=== PATIENT | male | born 1970 | race Caucasian/White ===

== ENCOUNTER 2021-04-24 05:32 | Day surgery (SDC) | payer OTHER, SELFPAY ==
[2021-04-24 06:00] VITALS: BP 156/85; PULSE 74; RESP 18; TEMP 36.3; O2SAT 100; BMI 31.9
[2021-04-24] MEDS: Lactated Ringers 1,000 ML 100 ML IV (06:00)
[2021-04-24 06:21] LABS: Bedside Glucose 175 mg/dL (70-110)
--- NOTE | 2021-04-24 06:30 | PCM.HP.BLA ---
History and Physical Date of Admission: 04/24/21 Denys is a 50-year-old gentleman with past closed 3 of hypertension, diabetes, and hypercholesterolemia. He presents today for screening colonoscopy. He is not having any problems with his bowels. He has no family history of colon cancer. He has never had a colonoscopy. He has no abdominal pain, nausea or change in bowel habits. Past medical history is positive for hypertension, hypercholesterolemia, type 2 diabetes Past surgical history-none Family history-negative for GI disease Allergies-no known drug allergies Medications-Metformin 500 mg p.o. twice daily, rosuvastatin 20 mg daily, valsartan 320 mg daily Physical examination-blood pressure is 156/85, pulse 74, respiratory is 18, temperature is 97.4, satting 100% on room air HEENT-normocephalic atraumatic Respiratory-clear to all station bilaterally Cardiovascular-no murmurs rubs or gallops Abdomen-soft nontender nondistended Extremities-no rash ulcers or lesions Assessment and plan: 51 gentleman comes in for screening colonoscopy. He was explained alternatives, risk, benefits including not withstanding bleeding, infection, sepsis, perforation, need for emergent surgery . He would have an ASA 1.
[2021-04-24 07:06] VITALS: BP 124/87; BP 156/85; PULSE 64; RESP 14; TEMP 36.2; O2SAT 97
--- NOTE | 2021-04-24 07:08 | OP.COLON_ITS ---
Patient Name: Denys Wade Procedure Date: 04/24/2021 6:10 AM Date of : 1970 Age: 51 Procedure: Colonoscopy Indications: Screening for colorectal malignant neoplasm Providers: Javier Yates DO Medicines: See the Anesthesia note for documentation of the administered medications Patient Profile: This is a 51 year old male. Refer to note in patient chart for documentation of history and physical. Last Colonoscopy: date unknown. Complications: No immediate complications. Procedure: Pre-Anesthesia Assessment: - Prior to the procedure, a History and Physical was performed, and patient medications and allergies were reviewed. The patient is competent. The risks and benefits of the procedure and the sedation options and risks were discussed with the patient. All questions were answered and informed consent was obtained. Patient identification and proposed procedure were verified by the physician in the pre-procedure area. Mental Status Examination: alert and oriented. Airway Examination: normal oropharyngeal airway and neck mobility. Respiratory Examination: clear to auscultation. CV Examination: normal. Prophylactic Antibiotics: The patient does not require prophylactic antibiotics. Prior Anticoagulants: The patient has taken no previous anticoagulant or antiplatelet agents. After reviewing the risks and benefits, the patient was deemed in satisfactory condition to undergo the procedure. The anesthesia plan was to use moderate sedation / analgesia (conscious sedation). Immediately prior to administration of medications, the patient was re-assessed for adequacy to receive sedatives. The heart rate, respiratory rate, oxygen saturations, blood pressure, adequacy of pulmonary ventilation, and response to care were monitored throughout the procedure. The physical status of the patient was re-assessed after the procedure. After I obtained informed consent, the scope was passed under direct vision. Throughout the procedure, the patient's blood pressure, pulse, and oxygen saturations were monitored continuously. The pediatric colonoscope was introduced through the anus and advanced to the cecum, identified by appendiceal orifice and ileocecal valve. The ileocecal valve, appendiceal orifice, and rectum were photographed. The entire colon was well visualized. Moderate Sedation: Moderate (conscious) sedation was administered by the endoscopy nurse and supervised by the endoscopist. The patient's oxygen saturation, heart rate, blood pressure and response to care were monitored. Total physician intraservice time was 15 minutes. Scope In: 6:42:48 AM Scope Withdrawal Time 0 hours 13 minutes 3 seconds Scope Out: 7:02:21 AM Total Procedure Duration Time 0 hours 19 minutes 33 seconds Findings: Hemorrhoids were found on perianal exam. The colon (entire examined portion) appeared normal. The entire examined colon appeared normal on direct and retroflexion views. Impression: - Hemorrhoids found on perianal exam. - The entire examined colon is normal. - The entire examined colon is normal on direct and retroflexion views. - No specimens collected. Recommendation: - Discharge patient to home. - Resume previous diet. - Continue present medications. - Repeat colonoscopy in 10 years for screening purposes. - Return to GI office PRN. Procedure Code(s): --- Professional --- 13385, Colonoscopy, flexible; diagnostic, including collection of specimen(s) by brushing or washing, when performed (separate procedure) G0500, Moderate sedation services provided by the same physician or other qualified health ambulatory care nurse performing a gastrointestinal endoscopic service that sedation supports, requiring the presence of an independent trained observer to assist in the monitoring of the patient's level of consciousness and physiological status; initial 15 minutes of intra-service time; patient age 5 years or older (additional time may be reported with 14617, as appropriate) CPT copyright 2017 [employer]. All rights reserved. The codes documented in this report are preliminary and upon invoice coder review may be revised to meet current compliance requirements. Javier Yates DO 04/24/2021 7:07:32 AM This report has been signed electronically. Number of Addenda: 1 Note Initiated On: 04/24/2021 6:10 AM Addendum Number: 1 Addendum Date: 01/29/2022 6:54:06 AM MAC was used instead of moderate sedation for the patient. Javier Yates DO 01/29/2022 6:55:21 AM This report has been signed electronically.
[2021-04-24 07:10] VITALS: BP 124/85; BP 156/85; PULSE 65; RESP 16; O2SAT 97
[2021-04-24 07:15] VITALS: BP 133/83; BP 156/85; PULSE 65; RESP 16; O2SAT 96
[2021-04-24 07:21] VITALS: BP 133/98; BP 156/85; PULSE 65; RESP 16; TEMP 36.7; O2SAT 98
[2021-04-24 07:30] VITALS: BP 156/85
== END 2021-04-24 07:56 | disposition home or self-care (01) ==
LOC: EN 05:37 → AC 05:39
PROVIDERS: Visit Provider Internal Medicine Gastroenterology
PROC: 0DJD8ZZ Inspection of Lower Intestinal Tract, Via Natural or Artificial Opening Endoscopic (ICD-10-PCS; CPT 45378; principal; 2021-04-24 06:25)
DX: Z12.11 Encounter for screening for malignant neoplasm of colon (principal); K64.9 Unspecified hemorrhoids; E11.9 Type 2 diabetes mellitus without complications; I10 Essential (primary) hypertension; E78.00 Pure hypercholesterolemia, unspecified; Z79.84 Long term (current) use of oral hypoglycemic drugs; Z79.899 Other long term (current) drug therapy
CPT/HCPCS: 45378; 82962; J7120; J2405